=== PATIENT | female | born 1985 | race Two or more races ===

== ENCOUNTER 2018-03-02 09:19 | Emergency (ER) | payer OTHER ==
[~2018-03-02] VITALS: Ht 165.1 cm; Wt 81.6 kg
[~2018-03-02 09:19] MED LIST: LEVSIN0.125 MG PO; ZANTAC300 MG PO; ZOFRAN4 MG PO
== END 2018-03-02 12:27 | disposition home or self-care (01) ==
LOC: ER 09:19
DX: J40 Bronchitis, not specified as acute or chronic (principal)

== ENCOUNTER 2019-10-19 17:30 | Emergency (ER) | payer OTHER ==
[~2019-10-19] VITALS: Ht 165.1 cm; Wt 80.7 kg
== END 2019-10-19 20:24 | disposition home or self-care (01) ==
LOC: ER 17:30
DX: T78.49XA Other allergy, initial encounter (principal); R21 Rash and other nonspecific skin eruption

== ENCOUNTER 2020-03-23 18:50 | Emergency (ER) | payer OTHER ==
[~2020-03-23] VITALS: Ht 170.2 cm; Wt 99.8 kg
== END 2020-03-23 21:07 | disposition home or self-care (01) ==
LOC: ER 18:50
DX: R21 Rash and other nonspecific skin eruption (principal)

== ENCOUNTER 2020-11-06 20:12 | Emergency (ER) | payer OTHER ==
[~2020-11-06] VITALS: Ht 165.1 cm; Wt 81.6 kg
[2020-11-06] MEDS ORDERED: ZITHROMAX500 MG PO (21:17)
[2020-11-06] MEDS ORDERED: NABUMETONE500 MG PO (21:17)
[2020-11-06] MEDS ORDERED: TUSNEL LIQUID178 ML PO (21:17)
== END 2020-11-06 21:20 | disposition home or self-care (01) ==
LOC: ER 20:12
DX: J03.90 Acute tonsillitis, unspecified (principal); M79.631 Pain in right forearm; M62.838 Other muscle spasm

== ENCOUNTER 2021-06-25 20:58 | Emergency (ER) | payer OTHER ==
[~2021-06-25] VITALS: Ht 170.2 cm; Wt 81.6 kg
[~2021-06-25 20:58] MED LIST changes: +NABUMETONE500 MG PO; +TUSNEL LIQUID178 ML PO; +ZITHROMAX500 MG PO
== END 2021-06-25 22:12 | disposition home or self-care (01) ==
LOC: ER 20:58
DX: M54.89 Other dorsalgia (principal)

== ENCOUNTER 2021-09-20 12:54 | Emergency (ER) | payer OTHER ==
[~2021-09-20] VITALS: Ht 165.1 cm; Wt 79.4 kg
[2021-09-20] MEDS ORDERED: PEPCID AC20 MG PO (15:13)
[2021-09-20] MEDS ORDERED: DICLOFENAC POTA50 MG PO (15:13)
[2021-09-20] MEDS ORDERED: AIRBORNE EFFER1 EACH PO (15:13)
== END 2021-09-20 15:23 ==
LOC: ER 12:54
DX: J06.9 Acute upper respiratory infection, unspecified (principal); Z20.822 Contact with and (suspected) exposure to COVID-19

== ENCOUNTER 2024-10-12 19:27 | Emergency (ER) | payer OTHER ==
[~2024-10-12] VITALS: Ht 165.1 cm; Wt 81.6 kg
[~2024-10-12 19:27] MED LIST changes: +AIRBORNE EFFER1 EACH PO; +DICLOFENAC POTA50 MG PO; +PEPCID AC20 MG PO
[2024-10-12] MEDS ORDERED: PRENATAL + DHA1 EAC1 PO (19:47)
[2024-10-12 20:51] LABS: MEAN CORPUSCULAR HGB CONC 32.1 g/dl (32.0-36.0); PLATELET COUNT 391 K/uL (150-450); RED BLOOD COUNT 3.77 M/uL (4.00-6.00)
[2024-10-12 20:52] LABS: HEMATOCRIT 25.9 % (36.0-45.00); HEMOGLOBIN 8.3 g/dL (12.0-15.00); MEAN CELL VOLUME 68.6 fL (80.00-100.00); RED CELL DISTRIBUTION WIDTH 21.5 % (11.5-14.5)
[2024-10-12 21:02] LABS: URINE APPEARANCE Cloudy; URINE BILIRRUBIN Negative (NEGATIVE); URINE BLOOD Moderate; URINE COLOR Yellow; URINE GLUCOSE Negative (NEGATIVE); URINE KETONE Negative (NEGATIVE); URINE LEUKOCYTE Small; URINE NITRATE Negative; URINE PROTEIN Negative (NEGATIVE); URINE UROBILINOGEN 0.2 E.U./dl
[2024-10-12 21:06] LABS: URINE BACTERIA 319.4 uL (0.0-1933); URINE EPITHELIAL CELLS 18.3 uL (0.0-38.8); URINE RBC 174.1 uL (0.0-20.8); URINE WBC 138.5 uL (0.0-23.2)
[2024-10-12 21:07] LABS: URINE CAST 0.29 uL (0.0-1.40)
[2024-10-12] MEDS ORDERED: FUSION PLUS CA1 EACH PO (23:39)
== END 2024-10-12 23:45 | disposition home or self-care (01) ==
LOC: ER 19:30
PROVIDERS: General Practice
DX: O20.8 Other hemorrhage in early pregnancy (principal); Z3A.09 9 weeks gestation of pregnancy